=== PATIENT | female | born 1980 | race Caucasian/White ===

== ENCOUNTER 2023-11-03 13:39 | Emergency (ER) | payer MEDICAID, OTHER ==
[~2023-11-03] VITALS: Ht 160 cm; Wt 73.0 kg
[~2023-11-03 13:39] MED LIST: IBUP-44 PO
[2023-11-03 13:49] VITALS: BP 129/89; PULSE 78; RESP 16; TEMP 97.7; O2SAT 99
[2023-11-03 14:43] VITALS: TEMP 97.7
[2023-11-03] MEDS: KETOROLAC 60 MG/2 ML VIAL IM ONE (14:44)
[2023-11-03] MEDS ORDERED: IBUP-2213 PO (14:57)
[2023-11-03 15:00] VITALS: BP 128/80; PULSE 74; RESP 17; O2SAT 98
== END 2023-11-03 15:00 | disposition home or self-care (01) ==
LOC: MED 13:39
DX: R51.9 Headache, unspecified (principal); Z79.899 Other long term (current) drug therapy
CPT/HCPCS: 81002; 81025; 96372; 99283; J1885